=== PATIENT | male | born 1985 | race Caucasian/White ===

== ENCOUNTER 2022-06-16 09:22 | Emergency (ER) | payer MEDICAID ==
[~2022-06-16] VITALS: Ht 182.9 cm; Wt 93.2 kg
[2022-06-16] MEDS ORDERED: TraMADol HCL 50 MG TABLET PO ONE (10:00)
[2022-06-16] MEDS ORDERED: KETOROLAC TROMETHAMINE 60 MG/2 ML VIAL IM ONE (10:00)
[2022-06-16] MEDS ORDERED: TRAM-559 PO (10:35)
[2022-06-16 11:02] VITALS: BP 111/69
== END 2022-06-16 11:05 | disposition home or self-care (01) ==
LOC: EMS 09:22
DX: S62.306A Unspecified fracture of fifth metacarpal bone, right hand, initial encounter for closed fracture (principal); W01.0XXA Fall on same level from slipping, tripping and stumbling without subsequent striking against object, initial encounter; Y93.89 Activity, other specified; Y92.89 Other specified places as the place of occurrence of the external cause; Y99.8 Other external cause status
CPT/HCPCS: 99283; J1885

== ENCOUNTER 2022-06-25 04:21 | Emergency (ER) | payer MEDICAID ==
[~2022-06-25] VITALS: Ht 182.9 cm; Wt 95.5 kg
[~2022-06-25 04:21] MED LIST: TRAM-559 PO
[2022-06-25 04:32] VITALS: BP 130/67
[2022-06-25] MEDS ORDERED: IBUP-1554 PO (04:50)
[2022-06-25] MEDS ORDERED: ACET-2080 PO (04:50)
== END 2022-06-25 05:14 | disposition home or self-care (01) ==
LOC: EMS 04:29
DX: S62.336A Displaced fracture of neck of fifth metacarpal bone, right hand, initial encounter for closed fracture (principal); X58.XXXA Exposure to other specified factors, initial encounter; Y93.89 Activity, other specified; Y92.89 Other specified places as the place of occurrence of the external cause; Y99.8 Other external cause status
CPT/HCPCS: 29280; 99283